=== PATIENT | male | born 1995 | race Two or more races ===

== ENCOUNTER 2016-09-05 18:56 | Emergency (ER) | payer OTHER | END 2016-09-05 19:20 | disposition home or self-care (01) | LOC: CED 18:56 | DX: K64.4 Residual hemorrhoidal skin tags (principal) | CPT/HCPCS: 99282 ==

== ENCOUNTER 2016-11-25 04:09 | Emergency (ER) | payer BC, OTHER | END 2016-11-25 05:40 | disposition home or self-care (01) | LOC: CED 04:09 | DX: G44.209 Tension-type headache, unspecified, not intractable (principal); M26.603 Bilateral temporomandibular joint disorder, unspecified | CPT/HCPCS: 99282 ==

== ENCOUNTER 2017-01-08 19:07 | Emergency (ER) | payer BC, OTHER ==
--- NOTE | ~2017-01-08 | CR253 ---
[facility] A Service of [facility] & [facility] RADIOLOGY TEXT RESULTS PATIENT: JAVI CALDWELL LOCATION: [facility]FT[facility] : [birth year] UNIT #: [id number] AGE: [address]: Maurizio Bal SEX: M ORDER DR: [id number] [facility] [address] [place], [place] [address] [id number] E MR#: [id number] Acc #: [id number] NAME: JAVI CALDWELL : 1995 SEX: M STUDY DATE/TIME: 01/08/2017 21:26 UNIT: [facility]IL ROOM: STUDY DESCRIPTION: CR Tibia and Fibula 2 Views Rt Attending Physician: Maurizio Bal P.A.-C. Ordering Physician: Ed Leander Childs M.D. Primary Care Physician: Primary Care Physician No MEDICAL IMAGING REPORT This report is preliminary unless electronic signature is present EXAM Right tibia and fibula 4 views, 01/08/2017 HISTORY Right lower extremity pain for 1 year with numbness. No known injury. FINDINGS There is no evidence of fracture, dislocation, or radiopaque foreign body. IMPRESSION Normal tibia and fibula. Dictated by... Agustin Mcclellan M.D. THIS IS AN ELECTRONICALLY VERIFIED REPORT Agustin Mcclellan M.D. at 01/09/2017 7:23 AM ZULEMA/petros TD: 01/09/2017 04:30 JOB #: [id number] MEDICAL IMAGING REPORT Page 1 of 1 COPY
--- NOTE | ~2017-01-08 | CR252 ---
[facility] A Service of [facility] & [facility] RADIOLOGY TEXT RESULTS PATIENT: JAVI CALDWELL LOCATION: CFT[facility] : [birth year] UNIT #: [id number] AGE: [address]: Maurizio Bal SEX: M ORDER DR: [id number] [facility] [address] [place], [place] [address] [id number] E MR#: [id number] Acc #: [id number] NAME: JAVI CALDWELL : 1995 SEX: M STUDY DATE/TIME: 01/08/2017 21:23 UNIT: [facility] ROOM: STUDY DESCRIPTION: CR Tibia and Fibula 2 Views Lt Attending Physician: Maurizio Bal P.A.-C. Ordering Physician: Maurizio Bal P.A.-C. Primary Care Physician: Primary Care Physician No MEDICAL IMAGING REPORT This report is preliminary unless electronic signature is present EXAM Left tibia and fibula 4 views, 01/08/2017 HISTORY Left lower extremity pain and numbness beginning 1 day ago. No known injury. FINDINGS There is no evidence of fracture, dislocation, or radiopaque foreign body. IMPRESSION Normal tibia and fibula. Dictated by... Agustin Mcclellan M.D. THIS IS AN ELECTRONICALLY VERIFIED REPORT Agustin Mcclellan M.D. at 01/09/2017 7:23 AM ZULEMA/petros TD: 01/09/2017 04:29 JOB #: [id number] MEDICAL IMAGING REPORT Page 1 of 1 COPY
[2017-01-08 22:08] LABS: BASOPHIL% 0.4 % (0-2.5); EOSINOPHIL# 0.2 X10e3 (0-0.7); EOSINOPHIL% 3.4 % (0.0-7.0); HEMATOCRIT 49.5 % (38.0-50.0); HEMOGLOBIN 16.4 gm/dL (13.0-16.0); LYMPHOCYTE# 1.6 X10e3 (1.0-3.5); LYMPHOCYTE% 35.3 % (17.0-45.0); MEAN CELL VOLUME 95.7 FL (83-96); MEAN CORPUSCULAR HEMOGLOBIN 31.6 PG (28-34); MEAN PLATELET VOLUME 8.8 FL (6.5-11.5); MONOCYTE# 0.7 X10e3 (0-1.0); MONOCYTE% 15.3 % (3.0-12.0); NEUTROPHIL% 45.6 % (40-75); PLATELET COUNT 171 X10e3 (140-420); RED BLOOD COUNT 5.18 X10e (3.90-5.60); RED CELL DISTRIBUTION WIDTH 12.9 % (11.0-15.5); WHITE BLOOD COUNT 4.5 X10e3 (4.0-10.5)
[2017-01-08 22:09] LABS: DIFF IND NO
[2017-01-08 22:40] LABS: GLOM FILT RATE Estimated 106.4 mL/min (>60)
== END 2017-01-08 22:50 | disposition home or self-care (01) ==
LOC: CED 19:07 → CFTX 19:07
PROVIDERS: Physician Assistant
DX: M79.662 Pain in left lower leg (principal); M79.661 Pain in right lower leg; K21.9 Gastro-esophageal reflux disease without esophagitis; Z79.899 Other long term (current) drug therapy
CPT/HCPCS: 36415; 73590; 80048; 82550; 85025; 99284

== ENCOUNTER 2017-01-17 18:35 | Emergency (ER) | payer BC, OTHER | END 2017-01-17 19:30 | disposition home or self-care (01) | LOC: CFTX 18:35 → CED 18:35 → CFTX 19:25 | DX: S16.1XXA Strain of muscle, fascia and tendon at neck level, initial encounter (principal); K21.9 Gastro-esophageal reflux disease without esophagitis; X50.9XXA Other and unspecified overexertion or strenuous movements or postures, initial encounter; Y92.9 Unspecified place or not applicable | CPT/HCPCS: 99283 ==

== ENCOUNTER 2017-01-21 22:28 | Emergency (ER) | payer BC, OTHER ==
--- NOTE | ~2017-01-21 | CR58 ---
[facility] A Service of [facility] & [facility] RADIOLOGY TEXT RESULTS PATIENT: JAVI CALDWELL LOCATION: [facility] : [birth year] UNIT #: [id number] AGE: [address]: Hao Martínez MD SEX: M ORDER DR: [id number] [facility] [address] [place], [place] [address] [id number] E MR#: [id number] Acc #: [id number] NAME: JAVI CALDWELL : 1995 SEX: M STUDY DATE/TIME: 01/21/2017 23:48 UNIT: [facility] ROOM: STUDY DESCRIPTION: CR Cervical Spine 2 or 3 Views Attending Physician: Hao Martínez M.D. Ordering Physician: Hao Martínez M.D. Primary Care Physician: Primary Care Physician No MEDICAL IMAGING REPORT This report is preliminary unless electronic signature is present EXAM Cervical spine, 01/21 at 23:48. INDICATIONS Neck pain with upper extremity radiculopathy for a few weeks. No trauma. FINDINGS Four views of the cervical spine were obtained. No comparison. No fracture or subluxation is identified. Prevertebral soft tissues are normal. There is some anterior osteophyte formation at C4-5, which may be of degenerative origin. Exam is otherwise unremarkable. 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 Dictated by... Refugio Marie Jr., M.D. THIS IS AN ELECTRONICALLY VERIFIED REPORT Refugio Marie Jr., M.D. at 01/23/2017 6:53 AM HAVEN/blair TD: 01/22/2017 06:05 JOB #: [id number] MEDICAL IMAGING REPORT Page 1 of 1 COPY
== END 2017-01-22 01:03 | disposition home or self-care (01) ==
LOC: CED 22:28
DX: M54.2 Cervicalgia (principal); M54.6 Pain in thoracic spine; I10 Essential (primary) hypertension; K21.9 Gastro-esophageal reflux disease without esophagitis
CPT/HCPCS: 72040; 99283; J1885